=== PATIENT | male | born 1985 | race Caucasian/White ===

== ENCOUNTER 2018-11-09 18:47 | Outpatient (REF) | payer MEDICAID, SELFPAY | END 2018-11-09 19:07 | LOC: LBN 18:47 | PROVIDERS: PCP Family Medicine; Visit Provider Otolaryngology Otolaryngology/Facial Plastic Surgery | DX: J34.89 Other specified disorders of nose and nasal sinuses (principal) | CPT/HCPCS: 87077; 87102; 87070; 87186 ==